=== PATIENT | female | born 1975 | race Caucasian/White ===

== ENCOUNTER 2021-04-16 12:22 | Emergency (ER) | payer BC, SELFPAY ==
[2021-04-16 13:02] VITALS: BP 172/103; PULSE 65; RESP 14; TEMP 36.8; O2SAT 98; BMI 34.1
[2021-04-16 13:27] LABS: Apearance,Urine Turbid (Clear); Color,Urine Amber (Yellow); Protein,Urine Trace (Negative); Specific Gravity, Urine > 1.030 (1.005-1.030)
[2021-04-16 13:28] LABS: Bilirubin,Urine Negative (Negative); Blood, Urine Trace (Negative); Glucose,Urine (UA) Negative (Negative); Ketones,Urine Negative (Negative); UTC Leukocyte Esterase,Urine Negative (Negative); UTC Nitrate,Urine Negative (Negative); Urobilinogen,Urine 0.2 EU/dl (0.2)
--- NOTE | 2021-04-16 13:48 | HMH.EDUTC ---
[facility] [place] Disposition Clinical Impression: Viral syndrome UTI (urinary tract infection) Qualifiers: Urinary tract infection type: site unspecified Hematuria presence: with hematuria Qualified Code(s): N39.0 - Urinary tract infection, site not specified Low back pain Qualifiers: Chronicity: acute Back pain laterality: left Sciatica presence: without sciatica Qualified Code(s): M54.50 - Low back pain, unspecified Disposition: Home, Self-Care Condition on Discharge: Good Instructions: DI for Low Back Pain, DI for Urinary Tract Infection (UTI), DI for Viral Syndrome Additional Instructions: Drink plenty of fluids. Take tylenol or ibuprofen for pain or fever. Take the medications as directed. Follow up with your regular doctor. GO TO THE ER FOR ANY WORSENING SYMPTOMS The pyridium will make your urine turn orange, this is an expected side effect. It will stain your clothes if it comes into contact with them. Prescriptions: Ondansetron [Zofran 4mg ODT] 4 mg PO Q8HP PRN #20 tab PRN Reason: Nausea Transmission Status: Received by [id number] Cefdinir [Omnicef 300mg Capsule] 300 mg PO BID #20 cap Transmission Status: Received by [id number] Phenazopyridine HCl [Pyridium 200mg Tablet] 200 pow PO TID #6 tab Transmission Status: Received by [id number] Referrals: Chary Espinoza [Primary Care Provider] - Forms: Work/School Release Time of Disposition: 14:14 Medical Decision Making - Medical Records Medical records reviewed: No: I reviewed the patient's medical records. - Amadeo Inquiry Pt receiving controlled substance: No Vital Signs: 04/16/21 13:02 04/16/21 14:18 Temperature 98.2 F 98.5 F Temperature Source Oral Pulse Rate 77 Pulse Rate [Left] 65 Respiratory Rate 14 16 Blood Pressure 143/88 H Blood Pressure [Right Arm] 172/103 H Blood Pressure Mean [Right Arm] 126 02 Sat by Pulse Oximetry 98 - Lab Data Lab results reviewed: Yes: I reviewed the patient's lab results. Lab Results 04/16/21 13:10: Urine Color Franchesca, Urine Appearance Turbid, Urine pH 6.0, Ur Specific Rudyard > 1.030 H, Urine Protein Trace, Urine Glucose (UA) Negative, Urine Ketones Negative, Urine Blood Trace, Urine Nitrate Negative, Urine Bilirubin Negative, Urine Urobilinogen 0.2, Ur Leukocyte Esterase Negative Orders (Tests/Meds): ORDERS Category Date Time Status Covid-19 Nasal PCR ([facility]) Routine Lab 04/16/21 14:15 Received Urine Culture Stat Micro 04/16/21 13:07 Received [facility] UTC HPI - General Stated complaint: fever, weakness,diarrhea, low back pain left side Time Seen by Provider: 04/16/21 13:48 Mode of Arrival: Ambulatory Source of Information: Patient Limitations: No Limitations Description of Symptoms (Recalled from Triage Doc. by RN): pt c/o L flank pain that is worse after she urinates. pt also c/o body aches, chills, KANG, cough and is having shakes. HEENT Symptoms (Recalled from RN notes): No (KANG) Resp Symptoms (Recalled from RN notes): No (cough) Skin Symptoms (Recalled from RN notes): No MS Symptoms (Recalled from RN notes): Yes (L flank pain) Functional Status (Recalled from RN notes): wnl - History of Present Illness Provider Complaint: She states that for the past 5 days or so, she has felt bad, had some chilling and had left sided low back pain. Her back pain seems worse when she urinates. She has had urinary frequency also, but no burning or hematuria that she could see. She denies any cough or congestion. She denies any documented fever. She has been fully vaccinated against covid-19. 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 - Related Data Previous Rx's Medication Instructions Recorded Cefdinir [Omnicef 300mg Capsule] 300 mg PO BID #20 cap 04/16/21 Ondansetron [Zofran 4mg ODT] 4 mg PO Q8HP PRN #20 tab 04/16/21 Phenazopyridine HCl [Pyridium 200 pow PO TID #6 tab 04/16/21 200mg Tablet] Allergies Al
[2021-04-16 14:18] VITALS: BP 143/88; PULSE 77; RESP 16; TEMP 36.9
== END 2021-04-16 14:28 | disposition home or self-care (01) ==
PROVIDERS: Emergency Provider Nurse Practitioner Family; PCP Nurse Practitioner Family
DX: N39.0 Urinary tract infection, site not specified (principal); B34.9 Viral infection, unspecified; Z20.822 Contact with and (suspected) exposure to COVID-19; M54.50 Low back pain, unspecified
CPT/HCPCS: 81003; 87086; 99203; C9803; G0463; U0003; U0005

== ENCOUNTER 2022-07-18 17:12 | Emergency (ER) | payer BC, SELFPAY ==
[2022-07-18 17:13] VITALS: BP 151/76; PULSE 90; RESP 17; TEMP 36.4; O2SAT 98; BMI 37.0
[2022-07-18 17:48] LABS: Microscopic, Urine URINE MICROSCOPIC (MICROSCOPIC)
--- NOTE | 2022-07-18 17:54 | HMH.EDGENADL ---
Discharge Plan Disposition Patient Disposition: Home, Self-Care Prescriptions Prescriptions: New cefdinir 300 mg capsule 300 mg PO BID 10 Days Qty: 20 0RF ondansetron 4 mg tablet,disintegrating 4 mg PO Q6H PRN (Reason: nausea and vomiting) 5 Days Qty: 20 0RF No Action ondansetron 4 MG tablet,disintegrating 4 mg PO Q8HP PRN (Reason: Nausea) Qty: 20 0RF cefdinir 300 MG capsule 300 mg PO BID Qty: 20 0RF phenazopyridine 200 MG tablet 200 pow PO TID Qty: 6 0RF Referrals Follow up/Referrals: Chary Espinoza [Primary Care Provider] - See instructions Activity Restrictions/Add. Instructions Additional Instructions/Restrictions: Please follow-up with primary care doctor in 48 to 72 hours to follow-up urine culture results to make sure on the right antibiotic. Please return to the emergency department with worsening symptoms. Your CT scan showed punctate stones within the collecting portion of the kidney which do not cause symptoms there were no ureteral stones to suggest any severe pain. Your urine was abnormal but could be falsely positive secondary to the Azo that you have been taking. There remains uncertainty in your case please follow-up closely with your primary care doctor. No obvious emergent medical condition identified. Clinical Impressions Clinical Impression: Pyelonephritis Instructions Patient Instructions: DI for Acute Abdominal Pain Discharge ED Provider: Hermelindo Alfaro General Adult HPI General Chief complaint: Abdominal Pain Stated complaint: Severe abd pain and back pain Time Seen by Provider: 07/18/22 17:54 Mode of Arrival: Ambulatory Source of Information: Patient Limitations: No Limitations Description of Symptoms (Recalled from ER Triage Doc. by RN): pt to ED with bilateral flank pain that radiates into her lower abd. pt reports this pain has been present since friday but worsened today around 2pm. pt describes the pain as a sharp twisting pain that gets worse after she urinates but denies any burning when urinating History of Present Illness HPI narrative: 47-year-old female presents today with lower back pain that is bilateral states is primarily in the left side flank radiating around to the front patient denies any dysuria frequency urgency or hematuria but does have a history of a kidney stone states this is similar in the past. States that she has had to have urologic intervention for kidney stone in the past. No fevers or chills. Related Data Previous Rx's Medication Instructions Recorded cefdinir 300 mg capsule 300 mg PO BID #20 caps 04/16/21 ondansetron 4 mg disintegrating 4 mg PO Q8HP PRN Nausea #20 tabs 04/16/21 tablet phenazopyridine 200 mg tablet 200 pow PO TID #6 tabs 04/16/21 cefdinir 300 mg capsule 300 mg PO BID 10 days #20 caps 07/18/22 ondansetron 4 mg disintegrating 4 mg PO Q6H PRN nausea and 07/18/22 tablet vomiting 5 days #20 tabs Allergies Allergy/AdvReac Type Severity Reaction Status Date / Time Amoxicillin Allergy Unknown Uncoded 04/22/17 14:37 [facility] Disclaimer: The information contained in this section may have been updated after the patient was seen, as this information can be updated by other users. Social History Smoking Status: Current every day smoker alcohol intake: never current occupational status: other Travel in the last 8 weeks: None ROS Obtained: Yes All systems reviewed & no additional complaints except as documented Physical Exam General General appearance: alert and other (Patient significant distress standing up and bending over in obvious distress and pain) Respiratory Respiratory exam: Present normal lung sounds bilaterally; Absent respiratory distress or wheezes Cardiovascular Cardiovascular exam: Present regular rate Abdominal Exam Abdominal exam: Present soft and other (No CVA tenderness bilaterally); Absent distention, tenderness or guarding Neurological Exam Neurological exam: Present
[2022-07-18 17:58] LABS: Basophils # 0.1 K/mm3 (0-0.2); Basophils % 0.9 % (0.1-2.0); Eosinophils # 0.3 K/mm3 (0.0-0.4); Eosinophils % 1.8 % (0.1-12.0); Hemoglobin 12.2 g/dL (12.2-16.2); Lymphocytes # 2.7 K/mm3 (0.7-4.5); Lymphocytes % 18.9 % (10-50); Mean Corpuscular Hemoglobin 28.1 pg (27.0-31.2); Mean Corpuscular Volume 87.9 fl (81-99); Mean Platelet Volume 7.4 fl (7.4-10.4); Monocytes # 0.4 K/mm3 (0.1-1.0); Monocytes % 2.6 % (1.7-9.3); Neutrophils # 10.8 K/mm3 (1.8-7.8); Neutrophils % 75.9 % (37.0-80.0); Platelet Count 532 K/mm3 (142-424); Red Blood Count 4.32 M/mm3 (4.20-5.40); Red Cell Distribution Width 13.5 % (11.5-17.5); White Blood Count 14.3 K/mm3 (4.8-10.8)
--- NOTE | 2022-07-18 17:58 | CT_ITS ---
PROCEDURE INFORMATION: Exam: CT Abdomen And Pelvis Without Contrast Exam date and time: 07/18/2022 6:21 PM Age: 47 years old Clinical indication: Abdominal pain; Generalized; Patient HX: HX ectopic x 26 yrs ago; Additional info: Flank pain TECHNIQUE: Imaging protocol: Computed tomography of the abdomen and pelvis without contrast. Radiation optimization: All CT scans at this facility use at least one of these dose optimization techniques: automated exposure control; mA and/or kV adjustment per patient size (includes targeted exams where dose is matched to clinical indication); or iterative reconstruction. REPORTING DATA: Count of CT and Cardiac NM exams in prior 12 months: This patient has received 0 known CTs and 0 known cardiac nuclear medicine studies in the 12 months prior to the current study. COMPARISON: No relevant prior studies available. FINDINGS: Limitations: The absence of intravenous contrast limits the assessment of vascular structures, lesions and lymphadenopathy. Lungs: Lung bases are unremarkable. Liver: No focal hepatic lesions within the limits of noncontrast examination. Gallbladder and bile ducts: Gallbladder is distended without radiopaque cholelithiasis. No biliary ductal dilation. Pancreas: No peripancreatic fluid stranding. No main pancreatic ductal dilation. Spleen: No splenomegaly. Adrenal glands: The adrenal glands are normal. Kidneys and ureters: No perinephric stranding. Bilateral punctate caliceal calculi. No hydroureteronephrosis on either side. Stomach and bowel: No bowel wall thickening or distention. Appendix: A normal appendix is identified. Intraperitoneal space: There is no evidence of free intraperitoneal or pelvic fluid. Vasculature: Aorta is nonaneurysmal. Lymph nodes: No evidence of retroperitoneal or mesenteric lymphadenopathy. Urinary bladder: Urinary bladder is unremarkable. Reproductive: Unremarkable as visualized. Bones/joints: Unremarkable. No acute fracture. Soft tissues: Unremarkable. IMPRESSION: Bilateral nonobstructive nephrolithiasis. No hydroureteronephrosis on either side.
[2022-07-18 18:01] LABS: Appearance,Urine CLEAR (Clear); Blood, Urine TRACE-I (Negative); Color,Urine YELLOW (Yellow); Glucose,Urine (UA) TRACE (Negative); Ketones,Urine TRACE (Negative); Leukocyte Esterase,Urine TRACE (Negative); Nitrate,Urine POSITIVE (Negative); Protein,Urine 2+ (Negative); Specific Gravity, Urine 1.025 (1.005-1.030)
[2022-07-18 18:05] LABS: Alanine Aminotransferase 19 U/L (12-78); Albumin Level 4.9 g/dl (3.5-5.0); Albumin/Globulin Ratio 1.6 (1.1-1.8); Alkaline Phosphatase 87 U/L (38-126); Aspartate Amino Transferase 24 U/L (14-36); Bilirubin,Total 0.3 mg/dl (0.2-1.3); Blood Urea Nitrogen 12 mg/dl (7-17); Calcium 9.1 mg/dl (8.4-10.2); Carbon Dioxide 26 mmol/L (22.0-30.0); Chloride 103 mmol/L (98-107); Creatinine Clearance Estimated 162 mL/min (50-200); Estimated Glomerular Filt Rate 90 ml/min (>60); GFR (African American) 109 ML/MIN (>60); Glucose 96 mg/dl (74-100); Sodium 136 mmol/L (136-145); Total Protein,Serum 7.9 g/dl (6.3-8.2)
[2022-07-18 18:10] LABS: Anion Gap 10.5 mEq/L (5-15); Potassium 3.5 mmoL/L (3.5-5.1)
[2022-07-18 18:16] LABS: RBC,Urine Occasional #/hpf (0-3); WBC,Urine Occasional #/hpf (0-3)
[2022-07-18 18:18] LABS: Bacteria,Urine 2+ /lpf
[2022-07-18 18:24] LABS: Bilirubin,Urine 2+ (Negative)
[2022-07-18 19:36] VITALS: BP 134/74; PULSE 87; RESP 17; TEMP 36.4; O2SAT 98
== END 2022-07-18 19:37 | disposition home or self-care (01) ==
PROVIDERS: Emergency Provider Student in an Organized Health Care Education/Training Program; PCP Nurse Practitioner Family
DX: M54.59 Other low back pain (principal); N10 Acute pyelonephritis; R10.0 Acute abdomen
CPT/HCPCS: 74176; 80053; 81001; 85025; 87086; 96361; 96374; 96375; 99284; 99285; J2405